=== PATIENT | male | born 1940 ===

== ENCOUNTER → 2018-03-10 | Outpatient (CLI) | payer MEDICARE, BC ==
[~2018-03-10] MED LIST: LOSA50TA72 PO; PROP80CA PO; QUET50TA21 PO; SPIR25TA76 PO
--- NOTE | 2018-03-10 10:50 | RADIOLOGY IMAGING REPORT ---
FACILITY: [facility] PATIENT NAME: Ernst Read : 1940 MR: [id number] V: [id number] EXAM DATE: ORDERING PHYSICIAN: ROZINA MONTENEGRO TECHNOLOGIST: Location: [facility] - [place] Patient: Ernst Read : 1940 Visit/Account:[id number] Date of Sevice: 03/10/2018 CHEST PA AND LAT HISTORY: Positive PPD. COMPARISON: None FINDINGS: Cardiomediastinal contours: Normal Lungs and pleura: Normal Bones/soft tissues: Bones appear demineralized. Degenerative osteophytes throughout the thoracic spin e. Other findings: Postoperative changes at the GE junction. IMPRESSION: 1. No acute cardiopulmonary disease. No evidence of active tuberculosis. Report Dictated By: Dieudonne Willard MD at 03/10/2018 10:45 AM Report E-Signed By: Dieudonne Willard MD at 03/10/2018 10:47 AM [id number]
== END ==
LOC: RAD 09:59
PROVIDERS: ATTEND Family Medicine
DX: M25.78 Osteophyte, vertebrae (principal); Z98.890 Other specified postprocedural states
CPT/HCPCS: 71046

== ENCOUNTER → 2018-03-14 | Outpatient (CLI) | payer BC, MEDICARE | LOC: ZZSPRING 03-13 07:44 | PROVIDERS: ATTEND Family Medicine | DX: G30.9 Alzheimer's disease, unspecified (principal) | CPT/HCPCS: 36415; 86480 ==

== ENCOUNTER → 2018-07-25 | Outpatient (CLI) | payer BC, MEDICARE ==
[~2018-07-25] MED LIST changes: +LOSA25TA52 PO; -LOSA50TA72 PO; +LOSA50TA74 PO; +PROP20TA56 PO; +PROP40TA45 PO; +TRAZ50TA34 PO
== END ==
LOC: ZZSPRING 05:53
PROVIDERS: ATTEND Family Medicine
DX: I10 Essential (primary) hypertension (principal)
CPT/HCPCS: 36415; 82040; 82247; 82310; 82374; 82435; 82565; 82947; 84075; 84132; 84155; 84295; 84450; 84460; 84520; 85027